=== PATIENT | female | born 1975 | race African-American/Black ===

== ENCOUNTER 2021-04-26 14:31 | Emergency (ER) | payer OTHER ==
[~2021-04-26] VITALS: Ht 157.5 cm; Wt 112.0 kg
[~2021-04-26 14:31] MED LIST: ALBUTEROL INH; SYMBICORT160 MCG/4.
[2021-04-26 14:33] VITALS: BP 165/88
[2021-04-26] MEDS ORDERED: DIFLUCAN150 MG PO (14:56)
[2021-04-26] MEDS ORDERED: AUGMENTIN 875-1 EACH PO (14:56)
== END 2021-04-26 15:39 | disposition home or self-care (01) ==
LOC: ER 14:31
DX: L03.213 Periorbital cellulitis (principal); I10 Essential (primary) hypertension; J45.909 Unspecified asthma, uncomplicated; Z79.51 Long term (current) use of inhaled steroids; Z79.899 Other long term (current) drug therapy; Z88.8 Allergy status to other drugs, medicaments and biological substances